=== PATIENT | male | born 1950 | race Caucasian/White ===

== ENCOUNTER → 2024-01-03 07:33 | Outpatient (REF) | payer OTHER, SELFPAY | LOC: RAD 07:33 | PROVIDERS: ATTENDING PHYSICIAN Internal Medicine Critical Care Medicine | DX: Z87.891 Personal history of nicotine dependence (principal) | CPT/HCPCS: 71271 ==

== ENCOUNTER → 2024-02-06 14:00 | Outpatient (REF) | payer OTHER, SELFPAY | LOC: RAD 14:00 | PROVIDERS: ATTENDING PHYSICIAN Surgery; FAMILY PHYSICIAN Emergency Medicine | DX: K56.600 Partial intestinal obstruction, unspecified as to cause (principal) | CPT/HCPCS: 74177; Q9967 ==

== ENCOUNTER → 2024-04-15 11:43 | Outpatient (REF) | payer OTHER, SELFPAY | LOC: RAD 11:43 | PROVIDERS: ATTENDING PHYSICIAN Emergency Medicine | DX: J40 Bronchitis, not specified as acute or chronic (principal) | CPT/HCPCS: 71046 ==

== ENCOUNTER → 2024-04-22 13:35 | Outpatient (REF) | payer OTHER, SELFPAY | LOC: RAD 13:35 | PROVIDERS: ATTENDING PHYSICIAN Urology; FAMILY PHYSICIAN Emergency Medicine | DX: N40.2 Nodular prostate without lower urinary tract symptoms (principal); R89.7 Abnormal histological findings in specimens from other organs, systems and tissues; Z80.42 Family history of malignant neoplasm of prostate | CPT/HCPCS: 76770 ==

== ENCOUNTER 2024-09-04 11:52 | Emergency (ER) | payer OTHER, SELFPAY ==
[2024-09-04 11:58] VITALS: BP 114/64
[2024-09-04 12:03] VITALS: BMI 34.2
[2024-09-04 12:17] LABS: % Basophils 0.6 % (0-2); % Immature Granulocytes 0.3 % (0-0.5); % Lymphocytes 26.6 % (20.5-51.1); % Monocytes 6.5 % (1.7-9.3); Absolute Basophils 0.1 10^3/uL (0-0.2); Absolute Lymphocytes 2.6 10^3/uL (1.2-3.4); Absolute Monocytes 0.6 10^3/uL (0.1-0.6); Absolute Neutrophils 6.5 10^3/uL (1.4-6.5); Hematocrit 44.9 % (39.0-52.0); Hemoglobin 15.1 g/dL (13.0-18.0); Mean Corp Hgb Conc. 33.6 g/dL (33.0-37.0); Mean Corpuscular Hgb 29.9 pg (27.0-31.0); Mean Corpuscular Volume 88.9 fL (80.0-94.0); Mean Platelet Volume 8.7 fL (7.4-10.4); Nucleated Red Blood Cells % 0 % (-); Platelet Count 204 10^3/uL (130-400); Red Blood Cell Count 5.05 10^6/uL (4.70-6.10); White Blood Cell Count 9.9 10^3/uL (4.8-10.8)
[2024-09-04 12:36] LABS: ALT (SGPT) 31 U/L (0-50); AST (SGOT) 26 U/L (17-59); Albumin 3.3 g/dl (3.5-5.0); Alkaline Phosphatase 60 U/L (38-126); Blood Urea Nitrogen 20 mg/dl (9-20); Calcium 7.9 mg/dl (8.4-10.2); Carbon Dioxide 27 mmol/L (22-30); Chloride 106 mmol/L (98-107); Estimated Creatinine Clearance 93 ml/min; Glucose 85 mg/dl (70-99); Sodium 137 mmol/L (135-145); Total Bilirubin 0.7 mg/dl (0.2-1.3); Total Protein 5.5 g/dl (6.3-8.2); eGFR > 60.00
[2024-09-04 12:47] LABS: Troponin I < 0.012 ng/ml
[2024-09-04 13:00] VITALS: BP 148/59
--- NOTE | 2024-09-04 13:04 | ED.GENMED ---
History of Present Illness
General
Chief Complaint: Chest Pain
Source: patient and spouse
Exam Limitations: none
Time Seen by Provider: 09/04/24 12:40
Nursing documentation reviewed up to this point in time: agreed with
History of Present Illness
History of Present Illness:
73-year-old male with a past medical history of hypertension, hypertriglyceridemia, asthma, ex-smoker who presents to the emergency department for evaluation after an episode of chest pain. Patient reports that he had just finished work (he says he
was given a quote on some ines) and got in the car to drive home. He says that on the drive home he started to get pain in his left scapula; initially he thought it could be muscular but pain then started to radiate across towards the chest.
He describes an intense pressure sensation. At its peak he says it was associated with sensation of nausea. He says he had some mild shortness of breath. He denies any vomiting. He denies any diaphoresis. Denies any dizziness or syncope. EMS
was called and brought him to the hospital; he was given 324 mg of aspirin by EMS. He says that by the time EMS arrived his symptoms had essentially resolved; total duration was about 15 to 20 minutes. He is currently asymptomatic. He denies
having had similar symptoms in the past. He does see Dr. Bergeron for routine screening and blood pressure management but does not have any known cardiac history.
Past History
Past History
ED Past Medical History: HTN, Other (diverticulitis ) and Other (kidney stones)
ED Past Surgical History: Bowel resection, Cholecystectomy and Other
Social History
Tobacco: Former smoker
Alcohol: Occasional
Drug: None
Personal:
Living: with family
Employment: Employed
Family History
Family History: Hypertension
Review of Systems
Review of Systems
All Other Systems: ROS reviewed and negative except as documented in HPI and ROS
Constitutional: Denies fever or chills
Respiratory: Reports trouble breathing; Denies cough
Cardiac: Reports chest pain; Denies diaphoresis or syncope
ABD/GI: Reports nausea; Denies abdominal pain, vomiting or diarrhea
: Denies flank pain
Musculoskeletal: Denies edema, neck pain or back pain
Neurological: Denies dizzy or headache
Phy Exam
Physical Exam
Physical Exam:
General: Awake, alert, oriented x3; no acute distress
Head: Normocephalic, atraumatic
Eyes: Conjunctiva normal, sclera anicteric
Throat: Airway intact, handling secretions
Neck: Trachea midline, supple without meningismus
Lungs: Clear to auscultation bilaterally, no wheezing, rales, rhonchi
Heart: Regular rate and rhythm with occasional ectopy, no murmurs, gallops, or rubs; no chest wall tenderness
Abd: Soft, non distended, nontender
Back: No scapular tenderness
Neuro: No gross deficit
Skin: no rash in area of concern
Extremities: No edema in extremities, equal pulses in all extremities
Scores
Heart Failure Risk
Heart Failure Risk Score: Not Applicable
Heart Score for Chest Pain Patients
STEMI patient?: No
History: Moderately Suspicious
ECG: Nonspecific Repolarization
Age: >/= 65 years
Risk Factors: 1 or 2 Risk Factors
Troponin: </= Normal Limit
Heart Score for Chest Pain Patients: 5
Heart Score Risk: 20.3% MACE over next 6 weeks
Withdrawal Assessment of Alcohol
Withdrawal Assessment Completed?: Not applicable
Course
Orders/Labs/Results
Orders:
Orders
09/04/24 11:57
Electrocardiogram (*1) Urgent
Reason for Study: Chest Pain
EKG- Treatment ONCE
09/04/24 12:05
Complete Blood Count/With Diff Urgent
Comprehensive Metabolic Panel Urgent
Troponin I Urgent
09/04/24 12:58
CR Chest - 2 Views Urgent
Comment:
Reason For Exam: chest pain
09/04/24 13:13
D-Dimer Urgent
09/04/24 14:47
Troponin I Urgent
Abnormal Lab Results
09/04/24
12:05
Calcium 7.9 L mg/dl
(8.4-10.2)
Total Protein 5.5 L g/dl
(6.3-8.2)
Albumin 3.3 L g/dl
(3.5-5.0)
09/04/24 12:05
09/04/24 12:05
Vital Signs
Initial and Last Documented VS:
Initial Vital Signs
Temp Pulse Resp BP Pulse Ox
36.9 C 69 13 114/64 97
09/04/24 11:58 09/04/24 11:58 09/04/24 11:58 09/04/24 11:58 09/04/24 11:58
Last Documented Vital Signs
Temp Pulse Resp BP Pulse Ox
36.9 C 49 15 148/59 96
09/04/24 11:58 09/04/24 13:35 09/04/24 13:35 09/04/24 13:00 09/04/24 13:35
MDM/Problems Addressed
Differential Diagnosis Includes:
Angina/ACS, GERD, costochondritis, dysrhythmia; PE, pneumonia, pneumothorax considered less likely clinically; very low clinical suspicion for acute aortic dissection
MDM/Problems Addressed:
73-year-old male presents for evaluation after an episode of chest pain�reports an intense pressure sensation radiating from left scapula across the chest associated with nausea and some shortness of breath. Resolved after about 15 to 20 minutes.
He did receive 324 mg of aspirin from EMS. Vitals and exam as above. EKG shows no STEMI. Labs sent in triage including a CBC and a CMP which were unremarkable. His initial troponin is undetectable. Will need to repeat troponin. Will check
D-dimer and chest x-ray. Reassess after the above.
Repeat troponin undetectable, D-dimer negative. Chest x-ray reviewed by me shows no acute disease. Vitals have been stable. Repeat EKG no changes. Low suspicion for emergent pathology, could have been an episode of angina but somewhat lower
suspicion given it was not exertional. Nevertheless we will refer to cardiology for expedited follow-up with ER chest pain hotline. I think he is stable for discharge at this point in time. He feels comfortable with this plan. Spoke about return
precautions all questions answered.
Chronic conditions affecting care:
Hypertension, hypertriglyceridemia�increase his risk for heart disease
*Radiology
Radiology exam reviewed: preliminary read by ED provider and radiology read reviewed
*Pulse Oximetry
Patient hypoxic: no
*EKG
Interpreted by ED Provider?: Yes
Heart Rate: 54
Rate: bradycardiac
Rhythm: sinus
Bowie: left axis deviation
Interval: normal interval
QRS Pattern: right bundle branch block
Ischemia: non-specific ST changes
*Critical Care Note
Total Time (30-74mins, 75-104mins- exclusive of procedures): Not Applicable
Data Reviewed
Review of Other/Old Records Reveals: Labs and Records
Source: patient and spouse
ED Attending Note
-
Portions of this chart may have been created with voice recognition software.� Occasional wrong word or��sound alike� substitutions may have occurred due to the inherent limitations of voice recognition software.
Discharge Plan
Departure
Patient with high blood pressure during this ER visit?: No
Discharge Problem:
Chest pain
Instructions: Chest Pain DCA Follow Up
Prescriptions:
No Action
aspirin 81 MG tablet,delayed release (DR/EC)
81 mg PO DAILY
losartan [Cozaar] 100 MG tablet
100 mg PO DAILY
lansoprazole [Prevacid] 30 MG capsule,delayed release(DR/EC)
30 mg PO DAILY
latanoprost 1 DROP drops
1 drp OPHTHALMIC HS
cefuroxime axetil 500 MG tablet
500 mg PO BID Qty: 6 0RF
Referrals:
Angelic Terrazas MD [Family Provider] -
David Bergeron DO [Active] - Call in 1-3 days for appt
Activity Restrictions/Additional Instructions:
Thank you for visiting the Emergency Department at [facility].
1. Please schedule a follow up appointment as directed. Call first thing tomorrow morning to make an appointment.
2. If indicated, please take your medications as instructed and indicated on discharge paperwork.
3. If any of your symptoms do not improve, or persist, or become more severe within 6-12 hours, please return to the emergency department for further care.
4. Please return to the emergency department if you develop a headache, neck pain/stiffness, fever greater than 100.4F, chest pain, shortness of breath, persistent nausea, vomiting, slurred speech, difficulty walking, numbness/tingling, weakness,
signs of infection or any other symptoms that are worrisome to you.
Please call [phone] if you have any questions.
Interventions
Interventions:
*Risk Screen - Suicide Last Done: 09/04/24 11:58
*General Assessment Last Done: 09/04/24 11:58
*Neglect/Abuse Screening Last Done: 09/04/24 11:58
ED- Cardiac Assessment Last Done: 09/04/24 12:19
Discharge Date and Time
Print Language: VENEZUELAN
[2024-09-04 13:45] LABS: D-Dimer < 0.27 ug/mlFEU (0.00-0.50)
[2024-09-04 15:34] LABS: Troponin I < 0.012 ng/ml
== END 2024-09-04 16:38 | disposition home or self-care (01) ==
LOC: EMR 11:52
PROVIDERS: Emergency Medicine; EMERGENCY PHYSICIAN Emergency Medicine; FAMILY PHYSICIAN Emergency Medicine
DX: R07.89 Other chest pain (principal); I10 Essential (primary) hypertension; E78.1 Pure hyperglyceridemia; J45.909 Unspecified asthma, uncomplicated; Z82.49 Family history of ischemic heart disease and other diseases of the circulatory system; Z87.442 Personal history of urinary calculi; Z87.891 Personal history of nicotine dependence; Z90.49 Acquired absence of other specified parts of digestive tract
CPT/HCPCS: 99283; 71046; 80053; 84484; 85025; 85379; 93005

== ENCOUNTER → 2024-09-15 11:52 | Outpatient (REF) | payer OTHER, SELFPAY | LOC: HWRCS 11:52 | PROVIDERS: ATTENDING PHYSICIAN Physician Assistant; FAMILY PHYSICIAN Emergency Medicine | DX: R94.31 Abnormal electrocardiogram [ECG] [EKG] (principal); I10 Essential (primary) hypertension; E78.2 Mixed hyperlipidemia; R07.89 Other chest pain | CPT/HCPCS: 78452; 93017; A9500; J2785 ==

== ENCOUNTER → 2024-10-07 14:55 | Outpatient (REF) | payer OTHER, SELFPAY | LOC: HWRCS 14:55 | PROVIDERS: ATTENDING PHYSICIAN Nuclear Medicine Nuclear Cardiology; FAMILY PHYSICIAN Emergency Medicine | DX: I10 Essential (primary) hypertension (principal); R94.31 Abnormal electrocardiogram [ECG] [EKG]; R07.9 Chest pain, unspecified | CPT/HCPCS: 93306 ==

== ENCOUNTER 2024-12-05 14:29 | Day surgery (SDC) | payer OTHER, SELFPAY ==
[2024-12-05] VITALS (19 sets, daily range): BP systolic 96–176; BP diastolic 51–86; BMI 34.2
[2024-12-05] MEDS: DILAUDID 1 MG IV (11:19)
--- NOTE | 2024-12-05 11:29 | ED.GENMED ---
History of Present Illness
General
Chief Complaint: Abdominal Pain
Source: patient
Exam Limitations: none
Time Seen by Provider: 12/05/24 11:02
Nursing documentation reviewed up to this point in time: agreed with
History of Present Illness
History of Present Illness:
74 y/o M with with h/o HTN
here with abdomianl angela x 2 weeks umbilical
he has known recurrent incisional hernia there, he has been operated on severaltimes for, most recent 2012
he has since seen dr. bartlett who was discussing hernia repair optinos
pt started having pain about 2 weeks ago as a dull ache
more recently the past 2 days much worse
noticed redness around the belly button today
no fever/chills
moving bowels last yesterday
had some lack okf appetite today but no vomiting
called surgeon and was told to come in
Past History
Past History
ED Past Medical History: HTN, Other (diverticulitis ) and Other (kidney stones)
ED Past Surgical History: Bowel resection, Cholecystectomy and Other
Social History
Tobacco: Former smoker
Alcohol: Occasional
Drug: None
Personal:
Living: with family
Employment: Employed
Family History
Family History: Hypertension
Review of Systems
Review of Systems
Allergies reviewed?: Yes
All Other Systems: Not applicable
Phy Exam
Physical Exam
Physical Exam:
GENERAL: Alert , in no apparent distress
EYE: pupils equal and reactive
NECK: Supple
ENT: o/p clr, mmm.
CARDIAC: Regular rate and rhythm .
LUNGS: Clear breath sounds bilaterally, no acute respiratory distress, no wheezes/rales/rhonchi
ABDOMEN: Soft,tender palpable lump/hernia in the superior umbilical region with about 4 cm surrounding erythema; tender; no r/g, no cvat, normal bowel sounds
NEUROLOGICAL: Alert and oriented, no focal neuro deficits
SKIN: Warm and dry, skin intact.
MUSCULOSKELETAL: No edema, well perfused. neg rosanna's sign
PSYCH: Normal and appropriate interaction.
Course
Orders/Labs/Results
Orders:
Orders
12/05/24 11:14
HYDROmorphone [Dilaudid] 1 mg IV NOW STA
12/05/24 11:20
Complete Blood Count/With Diff Urgent
Comprehensive Metabolic Panel Urgent
12/05/24 11:25
CT Abd/pel Without Iv Or Oral Urgent
Comment:
Reason For Exam: incarcerated hernia
12/05/24 11:32
Blood Culture Q30M
GWENDOLYN Source: Blood/Venous
Specimen Description:
12/05/24 11:47
CeFAZolin 2 GRAM [Ancef] 2 grams in 10 ml IV NOW
12/05/24 11:55
Admit/Transfer Patient As Directed
Co-Sign Provider:
Level of Care: Post Proc/Surg Recovery
Assign to:: Medical/Surgical
Physician / Group: Clinton/Surgery
Diagnosis: Incarcerated umbilical hernia
Reason for Overnight Stay: Standard of Care
PRN Pain Medication Management As Directed
May give lesser potent ordered pain med per pt: Yes
preference::
Protocol:: Medication orders for pain may be administered in a
manner that supports deferring to patient preference
when the pt is:
- Requesting an ordered lesser potent pain medication.
Least to most potent pain medications are defined
as: acetaminophen < NSAID < tramadol < opioids
(morphine, oxycodone, hydromorphone).
- Requesting a lesser dose of the same medication IF
ORDERED.
- Requesting a less intrusive route of administration
if both routes are prescribed by the provider (PO <
IV).
12/05/24 11:56
Code Status As Directed
Resuscitation Status: Full Code
12/05/24 12:00
Blood Culture Q30M
GWENDOLYN Source: Blood/Venous
Specimen Description:
12/05/24 12:08
HYDROmorphone [Dilaudid] 0.25 mg IV PACU-Q5MPRN PRN
HYDROmorphone [Dilaudid] 0.5 mg IV PACU-Q5MPRN PRN
Notify MD As Directed
Notify physician if: for SDS patients with known or suspected sleep obstructive sleep apnea, monitor in the
PACU.
Notify MD for any apneic/desaturation episodes
O2 Therapy [RESP] Urgent
Titrate/Wean O2 to maintain O2 sat greater than (%): 92
Special Instructions: -Provide supplemental oxygen to achieve O2 sat of 92% or greater.
-After 15 min, may wean O2 and discontinue if patient is able to maintain O2 sat of 92%
or greater during recovery period.
If patient is a discharge home, without oxygen therapy, notify anestheiologist if
unable to maintain O2 SAT of 92% or greater on room air for MD clearance.
12/05/24 12:15
Normosol (Mult Electrolytes) [Normosol-R/Plasmalyte-A] 1,000 ml IV PER PROTOCOL
12/05/24 12:19
EPINEPHrine PF [Adrenalin] 1 mg .ROUTE .STK-MED ONE
12/05/24 12:21
Dexamethasone Sod Phosphate [Decadron] 20 mg .ROUTE .STK-MED ONE
Diphenhydramine [Benadryl] 50 mg .ROUTE .STK-MED ONE
Famotidine [Pepcid] 20 mg .ROUTE .STK-MED ONE
12/05/24 12:22
Ondansetron Injectable [Zofran] 4 mg .ROUTE .STK-MED ONE
12/05/24 12:30
EPINEPHrine PF [Adrenalin] 0.3 mg IM NOW STA
12/05/24 12:31
Diphenhydramine [Benadryl] 50 mg IV NOW STA
12/05/24 12:33
Ondansetron Injectable [Zofran] 4 mg IV NOW STA
12/05/24 12:42
EPINEPHrine PF [Adrenalin] 1 mg .ROUTE .STK-MED ONE
12/05/24 12:47
EPINEPHrine 4 mg/250 mL NSS [Adrenalin] 4 mg in 250 ml .ROUTE .STK-MED
12/05/24 12:49
EPINEPHrine PF [Adrenalin] 0.3 mg IM NOW STA
12/05/24 12:50
0.9% Sodium Chloride 1000 ml [Nss] 1,000 ml IV BOLUS
12/05/24 12:59
0.9% Sodium Chloride 1000 ml [Nss] 1,000 ml IV BOLUS
12/05/24 13:38
Lidocaine HCl/Pf [Xylocaine-Mpf 1% Vial] 50 mg .ROUTE .STK-MED ONE
Propofol [Diprivan] 20 ml .ROUTE .STK-MED
Rocuronium [place] [Rocuronium] 100 mg .ROUTE .STK-MED ONE
12/05/24 13:40
Fentanyl Citrate/Pf [Sublimaze] 100 mcg .ROUTE .STK-MED ONE
Midazolam HCl [Versed] 2 mg .ROUTE .STK-MED ONE
12/05/24 13:41
EPINEPHrine PF [Adrenalin] 1 mg .ROUTE .STK-MED ONE
12/05/24 13:44
Ketamine 5 ml .ROUTE .STK-MED
12/05/24 14:12
Bupivacaine 0.25%Pf/Epinephrin [Sensorcaine-Epi 0.25%-0.0005] 60 ml .ROUTE .STK-MED ONE
12/05/24 14:45
Dexamethasone Sod Phosphate [Decadron] 20 mg .ROUTE .STK-MED ONE
Ondansetron Injectable [Zofran] 4 mg .ROUTE .STK-MED ONE
Phenylephrine HCl/0.9% NaCl [Parveen-Synephrine] 1,000 mcg .ROUTE .STK-MED ONE
Phenylephrine [Parveen-Synephrine] 10 mg .ROUTE .STK-MED ONE
ePHEDrine SULFATE [Emerphed] 50 mg .ROUTE .STK-MED ONE
Abnormal Lab Results
12/05/24
11:20
MCH 31.6 H pg
(27.0-31.0)
RDW 15.0 H %
(11.5-14.5)
Absolute Neuts (auto) 7.8 H 10^3/uL
(1.4-6.5)
Neutrophils % 76.7 H %
(42.2-75.2)
Lymphocytes % 18.5 L %
(20.5-51.1)
12/05/24 11:20
12/05/24 11:20
Vital Signs
Initial and Last Documented VS:
Initial Vital Signs
Temp Pulse Resp BP Pulse Ox
36.8 C 56 15 154/81 97
12/05/24 10:57 12/05/24 10:57 12/05/24 10:57 12/05/24 10:57 12/05/24 10:57
Last Documented Vital Signs
Temp Pulse Resp BP Pulse Ox
36.8 C 68 17 176/74 100
12/05/24 10:57 12/05/24 13:30 12/05/24 13:30 12/05/24 13:30 12/05/24 13:30
MDM/Problems Addressed
Differential Diagnosis Includes:
incarcerated hernia, obstruction
MDM/Problems Addressed:
74 y/o M with known hernia incisiaionl
here with 2 weeks pain and tender lump but worse int he past 2-3 days
now with skin changes, redness, just noticed today, unclear for how long he has had that
no fever/chills
no vomiting but dec appetite
stil moving bowels, most recent was yesterday
on exam afebrile
soft abdomen
tender palpable what feels like incarcerarted hernia with surrounding erythema
soft abdomen otherwise
bowel sounds present
d/w surgeon dr. arias who requested noncontrasted CT imaging and pt will go to OR.
did not recommend taht i reduce this at this time
i was called to the room 1215 for oncerns for allergic reactoin after pt was given ancef
within 10 minutes, flushed, felt itchy in his hands and arms and then startted vomiting
became pale, hypotensive to 70s
never had trouble breathing, facial swelling or throat closing
received IM epi and benadryl
ed attending aware and examined pt
observed and within another 15 minutes, he became hypotensive again to 90s and symptomatic with throat sensation of fullness and nauesa/vomiting again
received 2nd dose epi,
2 L fluids
improved and became flushed in his skin appearance but stable
observed until felt comforotable for pt to go to OR
surgeon aware.
*Critical Care Note
Total Time (30-74mins, 75-104mins- exclusive of procedures): Not Applicable
ED Attending Note
-
Portions of this chart may have been created with voice recognition software.� Occasional wrong word or��sound alike� substitutions may have occurred due to the inherent limitations of voice recognition software.
Discharge Plan
Departure
Patient Disposition: Admit
Date of Disposition: 12/05/24
Time of Disposition: 11:38
Admit to: Med/Surg
Admit to doctor: clinton
Presentation/result/management discussed w/ accepting MD/DO: clinton
Patient with high blood pressure during this ER visit?: No
Condition: Fair
Covid-19: Not Applicable
Discharge Problem:
Incarcerated hernia
Interventions
Interventions:
*Risk Screen - Suicide Last Done: 12/05/24 10:57
*General Assessment Last Done: 12/05/24 10:57
*Neglect/Abuse Screening Last Done: 12/05/24 10:57
*Nursing Disposition Last Done: 12/05/24 14:02
IN-Fqmkwd-Adiycefspt Assessment Last Done: 12/05/24 11:37
Discharge Date and Time
Discharge Date/Time: 12/05/24 14:02
--- NOTE | 2024-12-05 11:32 | HPS.HSE ---
Addendum entered and electronically signed by Raymond Alonzo MD 12/05/24 11:57:
I saw and examined the patient independently.
The Pillowcase Maker's note was reviewed and I agree with the note, assessment and plan except where noted below.
Comment: This is a 74-year-old or morbidly obese male with a history of laparoscopic cholecystectomy, lap sigmoid resection for diverticulitis complicated by incisional hernia status post repair x 2 who presents with an incarcerated incisional
hernia with pain over the past week now with overlying skin changes and tenderness to palpation.
Will get a stat CT abdomen pelvis without IV or oral contrast.
N.p.o., IV fluids, IV antibiotics ordered.
Will plan for a robotic incarcerated incisional hernia repair, possible mesh, possible open, possible bowel resection.
Risks/Benefits/Alternatives, expected postoperative course and possible complications (bleeding, infection, injury to surrounding structures, acute/chronic pain) discussed at length. Patient wishes to proceed with surgery. All questions answered.
Consent obtained.
I spent 60 minutes in total for the care of this patient today including direct patient care and counseling, reviewing labs, imaging, coordination of care, as well as documentation.
Original Note:
Family Physician
-
Family Physician:
Chief Complaint
-
Umbilical redness/pain
History of Present Illness
Mr Steele is a 74 yo male a h/o HTN, lap cecilia, diverticulitis s/p lap sigmoid resection (2009), open LLQ incisional hernia repair with mesh 2010 with lap repair with mesh for recurrence 2012 who has been following as an outpatient with Dr. Hairston
for fat containing bilateral inguinal, ventral and umbilical hernias who presents today with worsening discomfort to the umbilical hernia site over the past few weeks with noted erythema to the overlying skin this morning with associated nausea. He
has been having intermittent diarrhea with last BM today. He denies fevers or chills.
Medical History
Past Medical History
Past Medical History: Reports GERD, HTN and Other (nephrolithiasis, odell with cpap)
Past Surgical History: Reports Bowel Resection (lap sigmoid resection ([facility])), Cholecystectomy (1992), Orthopedic (right radial ulna ORIF, left TKR), Tonsilectomy, Urological (Ureteroscopy for stones) and Other (LLQ open incisional hernia repair
with mesh 2010 ([facility]) with recurrence and lap repair with Proceed 20x15 cm mesh in 2012 ([place]))
Social History
Tobacco: Former Smoker
Alcohol: Occasional
Personal:
Living: With Family
Family History
Family History: Cancer (uterice ca mother)
Allergies / Home Medications
Allergies reflects when Allergies were last updated in [employer].
Home Medications with original date entered in [employer]
Allergy/Medication List:
Patient Allergies
Allergy/AdvReac Type Severity Reaction Status Date / Time
latex Allergy Mild Unknown Verified 12/05/24 10:59
If medication reconciliation has not been performed, why?: Medication List N/A
Review of Systems
-
History Source: Patient and Family
A 12 point ROS was completed and negative except as noted: Yes
Physical Exam
Vital Signs
Vital Signs
Temp Pulse Resp BP Pulse Ox
98.3 F 56 15 154/81 97
12/05/24 10:57 12/05/24 10:57 12/05/24 10:57 12/05/24 10:57 12/05/24 10:57
Physical Exam
General: Well Developed, Well Nourished and Pain
HEENT: Moist mucous membranes
Respiratory: Non Labored Respirations
Cardiac: Regular Rhythm
GI: Soft, Tender (over umbilical hernia site) and Other (Umbilical hernia firm, painful with overlying skin changes. Soft reducible ventral and inguinal hernias); No No Hernias
Skin: Warm, Dry and Other (erythema to umbilicus)
Neuro: Awake, Alert and AO x 3
Psych: Calm
Data Reviewed
-
CT Scan: Image Personally Visualized and interpreted (from 01/2024)
Lab Data: Labs Reviewed by me, Discussed with Physician, Discussed with Patient and Discussed with Family
Old Records: Reviewed
Impression/Plan
-
IMPRESSION:
74 yo male h/o HTN, lap cecilia, diverticulitis s/p lap sigmoid resection (2009), open LLQ incisional hernia repair with mesh 2010 with lap repair with mesh for recurrence 2012 presenting with incarcerated umbilical hernia with worsening pain over the
past few weeks with intermittent diarrhea. Nausea today with overlying skin changes to the hernia site.
PLAN:
-Emergency surgery today for hernia repair
-D/W ED team, will check stat abd/pelvis CT w/o contrast to evaluate bowel/hernia size
-Labs being sent now from ED
-Keep NPO for OR
-Ancef 2gm preop
-SCDS for vte ppx
[2024-12-05 11:43] LABS: % Basophils 0.6 % (0-2); % Immature Granulocytes 0.4 % (0-0.5); % Lymphocytes 18.5 % (20.5-51.1); % Monocytes 3.8 % (1.7-9.3); % Neutrophils 76.7 % (42.2-75.2); Absolute Basophils 0.1 10^3/uL (0-0.2); Absolute Lymphocytes 1.9 10^3/uL (1.2-3.4); Absolute Monocytes 0.4 10^3/uL (0.1-0.6); Absolute Neutrophils 7.8 10^3/uL (1.4-6.5); Hematocrit 44.3 % (39.0-52.0); Hemoglobin 15.3 g/dL (13.0-18.0); Mean Corp Hgb Conc. 34.5 g/dL (33.0-37.0); Mean Corpuscular Hgb 31.6 pg (27.0-31.0); Mean Corpuscular Volume 91.5 fL (80.0-94.0); Mean Platelet Volume 8.5 fL (7.4-10.4); Nucleated Red Blood Cells % 0 % (-); Platelet Count 206 10^3/uL (130-400); Red Blood Cell Count 4.84 10^6/uL (4.70-6.10); White Blood Cell Count 10.1 10^3/uL (4.8-10.8)
[2024-12-05 11:57] LABS: ALT (SGPT) 49 U/L (0-50); AST (SGOT) 29 U/L (17-59); Alkaline Phosphatase 55 U/L (38-126); Blood Urea Nitrogen 17 mg/dl (9-20); Carbon Dioxide 28 mmol/L (22-30); Chloride 105 mmol/L (98-107); Estimated Creatinine Clearance 103 ml/min; Glucose 99 mg/dl (70-99); Potassium 4.2 mmol/L (3.5-5.1); Sodium 140 mmol/L (135-145); Total Bilirubin 0.9 mg/dl (0.2-1.3); Total Protein 6.4 g/dl (6.3-8.2); eGFR > 60.00
--- NOTE | 2024-12-05 11:57 | W.SUR.PREOP ---
Pre-Operative Surgical Note
-
I have examined this patient prior to the performance of the scheduled procedure.
The patient's condition is unchanged from the time of the current History and
Physical and the patient is able to undergo the scheduled procedure.
[2024-12-05] MEDS: ANCEF 10 IV (12:00)
[2024-12-05] MEDS: ADRENALIN 0.3 MG IM ×2 (12:30→12:49)
[2024-12-05] MEDS: BENADRYL 50 MG IV (12:31)
[2024-12-05] MEDS: ZOFRAN 4 MG IV (12:34)
[2024-12-05] MEDS: NSS 1000 IV ×3 (12:50→18:40)
--- NOTE | 2024-12-05 17:12 | W.IMMPOSTOP ---
Surgical Immed Post Op Note
-
Primary Surgeon: Raymond Alonzo MD
Assisting Surgeon: TIO Dumont
Pre-op Diagnosis: Incarcerated incisional hernia
Post-op Diagnosis: Same
Procedure Performed:
1. Lysis of adhesions
2. Robotic incarcerated incisional hernia repair with mesh
Anesthesia Type: General
Specimen / Cultures: None
Estimated Blood Loss: 11 cc
Complications: None
Operative Findings: Veress needle entry. 3 port, right sided dock. Incarcerated omentum reduced. Midline fat brought down. Multiple hernia defects along the midline spanning a total distance of 6 cm long by 2.5 cm wide. After closing the
defects with 0 V-Loc 180 sutures this space was reinforced with a 15 cm long by a 10 cm wide piece of Bard soft uncoated polypropylene mesh.
POST OP PLAN:
Imaging: None
Labs: Routine AM
Diet: Advance to Regular as tolerated
Analgesia: Tylenol 650mg q6 Jose, Betty 5mg q6 PRN, Dilaudid 0.5mg q2h PRN
Neuro/vascular checks: q4h
AC/AP: Hold Therapeutic AC, Ok for DVT PPx
Activity: Ad Lnig
Wound/Incisions/Drains: Routine
Abx: None
Dispo: RNF
[2024-12-05] MEDS: TORADOL 10 MG IV (19:23)
[2024-12-05] MEDS: DILAUDID 0.5 MG IV (23:01)
[2024-12-06 03:20] VITALS: BP 117/77
[2024-12-06] MEDS: NSS 1000 IV (05:29)
[2024-12-06] MEDS: DILAUDID 0.5 MG IV (06:34)
[2024-12-06 07:17] LABS: Hematocrit 39.5 % (39.0-52.0); Hemoglobin 13.1 g/dL (13.0-18.0); Mean Corp Hgb Conc. 33.2 g/dL (33.0-37.0); Mean Corpuscular Hgb 31.4 pg (27.0-31.0); Mean Corpuscular Volume 94.7 fL (80.0-94.0); Mean Platelet Volume 8.7 fL (7.4-10.4); Platelet Count 186 10^3/uL (130-400); Red Blood Cell Count 4.17 10^6/uL (4.70-6.10); Red Cell Dist. Width 14.9 % (11.5-14.5); White Blood Cell Count 16.6 10^3/uL (4.8-10.8)
[2024-12-06 07:20] VITALS: BP 135/61
[2024-12-06 07:47] LABS: Blood Urea Nitrogen 19 mg/dl (9-20); Calcium 8.2 mg/dl (8.4-10.2); Carbon Dioxide 26 mmol/L (22-30); Chloride 107 mmol/L (98-107); Estimated Creatinine Clearance 82 ml/min; Glucose 110 mg/dl (70-99); Potassium 4.7 mmol/L (3.5-5.1); Sodium 139 mmol/L (135-145); eGFR > 60.00
[2024-12-06] MEDS: LEXAPRO 10 MG PO (08:10)
[2024-12-06] MEDS: FOLVITE 1 MG PO (08:10)
[2024-12-06] MEDS: PROTONIX 20 MG PO (08:10)
[2024-12-06] MEDS: COZAAR 100 MG PO (08:10)
[2024-12-06] MEDS: TOPROL XL 50 MG PO (08:26)
--- NOTE | 2024-12-06 10:24 | W.PN.GS2 ---
Today's Communication / Plan
-
Dispo planning
Assessment / Plan
-
74 yo male with a h/o RA who presented with incarcerated incisional hernia near the umbilicus now POD #1 robotic incisional hernia repair with mesh, rosibel
Anaphylaxis in the ED after preop Ancef given. s/p steroid/epi. No rash or residual angioedema
AFVSS
Reactive leukocytosis s/p Decadron use
Tolerating diet
Good pain control
--d/c IVF
--c/w regular diet
--OOB/ambulate
--Multimodal analgesics
--ABD binder with activity
--c/w home meds
--SCDS while in bed for VTE ppx
Tentative d/c later today if pain continues to be well controlled
Subjective Data
-
Date of Service: December 06, 2024
Pt seen and examined at bedside. Denies n/v. OOB to chair. Passing flatus. Denies nausea. Tolerating diet. Minimal pain, better than preop.
Objective Data
-
Intake and Output
12/05/24 12/06/24 12/07/24
06:59 06:59 06:59
Intake Total 29837 / 75108
Output Total 650 / 650
Balance 9540 / 9540
Intake:
Oral fluids 460 / 460
IV fluids (Total) 9730 / 9730
Normosol 100 / 100
Output:
Urine, Christensen 200 / 200
Urine, Voided 450 / 450
Vital Signs
Temp Pulse Resp BP Pulse Ox
97.9 F 58 18 135/61 95
12/06/24 07:20 12/06/24 08:26 12/06/24 07:20 12/06/24 08:26 12/06/24 07:20
Lab Results
12/06/24 06:58
12/06/24 06:58
Calcium 8.2 mg/dl (8.4-10.2) L 12/06/24 06:58
Total Bilirubin 0.9 mg/dl (0.2-1.3) 12/05/24 11:20
AST 29 U/L (17-59) 12/05/24 11:20
ALT 49 U/L (0-50) 12/05/24 11:20
Alkaline Phosphatase 55 U/L (38-126) 12/05/24 11:20
Total Protein 6.4 g/dl (6.3-8.2) 12/05/24 11:20
Albumin 4.0 g/dl (3.5-5.0) 12/05/24 11:20
Physical Exam
-
NAD
ABD soft, obese, incisions with intact glue, ND. Mild receding erythema over umbilicus.
[2024-12-06 11:35] VITALS: BP 163/81
[2024-12-06] MEDS: TYLENOL 650 MG PO (12:43)
--- NOTE | 2024-12-06 13:43 | W.DS.TRANS ---
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
-
Discharge Instructions:
Discharge Diagnosis/Procedures Robotic repair of incarcerated incisional hernia
with mesh
Anaphylactic reaction to cephalosporin
antibiotic
Diet As tolerated,Regular
Activity No strenuous activity
Bathing Restrictions OK to Shower
Instructions:
Stand-Alone Forms:
Changes to Home Medications: No
Discharge Medications:
DC Medications w/original date entered in [facility]
losartan 100 mg tablet (Cozaar) 100 mg PO DAILY 12/15/09
atorvastatin 10 mg tablet 10 mg PO DAILY 12/05/24
betamethasone dipropionate 0.05 % lotion 1 applic topical DAILYPRN PRN skin 12/05/24
clobetasol 0.05 % topical cream 1 applic topical DAILYPRN PRN skin 12/05/24
escitalopram oxalate 10 mg tablet 10 mg PO DAILY 12/05/24
folic acid 1 mg tablet 1 mg PO DAILY 12/05/24
methotrexate sodium 2.5 mg tablet 7.5 mg PO MO@0800,1800 12/05/24
metoprolol succinate 50 mg tablet,extended release 24 hr 50 mg PO DAILY 12/05/24
pantoprazole 20 mg tablet,delayed release 20 mg PO DAILY 12/05/24
acetaminophen 325 mg tablet 650 mg (2 x 325 mg) PO Q4HPRN PRN mild pain #1 tab 12/06/24
oxycodone 5 mg tablet 5 mg PO Q4HPRN PRN breakthrough/severe pain #15 tabs 12/06/24
Home Medication Changes
Pending Results: No
[2024-12-06] MEDS: ROXICODONE 5 MG PO (13:49)
--- NOTE | 2024-12-10 18:30 | OR.RPT ---
Addendum entered and electronically signed by Raymond Alonzo MD 12/10/24 18:42:
Under previous creed unsure procedure description:
The adhesions in the left lower quadrant were lysed off of the abdominal wall and prior IPOM mesh which was clearly visible plastered over this area. Our Bard soft mesh was placed ventral to this mesh in this area.
Original Note:
Operative Report
Operative Report
Patient Name: Quincy Steele
: 1950
Date of Operation: 12/05/2024
Preoperative Diagnosis: Ventral incisional hernia, incarcerated
Postoperative Diagnosis: Same
Procedure(s):
1. Robotic lysis of adhesions
2. Robotic Ventral incisional hernia repair with mesh (CALVIN approach)
Surgeon(s):
Dr. Alonzo
Etcher Enameling(s):
TIO Dumont
Anesthesia: General
Estimated Blood Loss: 11 cc
Urine Output: None
Drains/Lines/Implants:
15 x 10 cm Bard soft uncoated polypropylene mid weight mesh
Specimens:
None
HPI/Surgical Indications:
This is a 74-year-old morbidly obese male with a known periumbilical incisional hernia who presents with abdominal pain and found to have an incarcerated incisional hernia with overlying skin changes. CT scan imaging consistent with incarcerated
omentum. Risks/Benefits/Alternatives were discussed at length, and the patient agreed to proceed with surgery.
Operative Findings: Veress needle entry. 3 port, right sided dock. Incarcerated omentum reduced. Midline fat brought down. Multiple hernia defects along the midline spanning a total distance of 6 cm long by 2.5 cm wide. After closing the
defects with 0 V-Loc 180 sutures this space was reinforced with a 15 cm long by a 10 cm wide piece of Bard soft uncoated polypropylene mesh.
Procedure Description:
The patient was brought to the Operating Room and placed in the supine position with the arms tucked. IV antibiotics were infused and Venodyne stockings placed. Following uneventful induction of general endotracheal anesthesia, an orogastric tube
was placed. The abdomen was prepped and draped in the usual sterile fashion. The abdomen was entered using a Verress technique which required 1 pass, pneumoperitoneum to 15 mmHg was obtained without difficulty. An 8mm trochar was passed through
the abdominal wall roughly 20 cm laterally from the defect in the right upper quadrant, we then confirmed that no inadvertent injury was made while passing the trocar or Veress needle. We then placed 2 additional 8 mm trocars and the robot was
docked. A pro grasper was introduced through the left hand, and a vessel sealer through the right. We turned our attention to the midline hernia which contained incarcerated omentum using the vessel sealer and ProGrasp or the omentum was gently
reduced and divided when necessary. There was a portion of the omentum that could not immediately be reduced and was therefore divided. There was also some adhesions from his prior surgery in the left lower quadrant up to the anterior abdominal
wall that were carefully lysed with scissors and blunt dissection. This took over 60 minutes to take down. There was no injury to the underlying bowel/viscera. We then began creating pocket in the preperitoneal plane. The main hernia defect was
identified and the contents of the hernia were reduced in a piecemeal fashion. We then extended our dissection cephalad and caudad. There were multiple defects noted along the midline all of which were reduced. The final defect size was 6 cm long
by 2.5 cm wide, and our pocket was 15 cm long by 10 cm wide. The defects in our flap were closed with 0 Vicryl sutures. They hernia defects were closed with 0 V-Loc 180 sutures. A piece of Bard soft uncoated polypropylene mid weight mesh was then
introduced and secured to the posterior rectus sheath in 4 quadrants with 2-0 Vicryl suture. We then closed our flap with a running 2-0 Monocryl barbed suture. There were a few more small rents that were closed with 2-0 Vicryl suture
[id number]. After confirming complete exclusion of the mesh from the intra-abdominal cavity the ports were removed under direct visualization and pneumoperitoneum was evacuated. All port sites were closed with glue. Counts were correct and
overall, the patient tolerated the procedure well and was taken to the Recovery Room postoperatively in stable condition.
I was the attending physician and performed the procedure with assistance from the DIRECTOR OF CONTENT AND PROGRAMMING above. I was present for all portions of the case, excluding skin closure.
Raymond Alonzo MD
== END 2024-12-06 14:52 | disposition home or self-care (01) ==
LOC: PACU 14:29
PROVIDERS: Physician Assistant; Registered Nurse; ATTENDING PHYSICIAN Surgery; EMERGENCY PHYSICIAN Emergency Medicine; FAMILY PHYSICIAN Emergency Medicine
DX: K43.0 Incisional hernia with obstruction, without gangrene (principal)
CPT/HCPCS: 49594; 74176; 80048; 80053; 85025; 85027; 87040; 96374; 99285; C1781

== ENCOUNTER → 2025-01-09 09:52 | Outpatient (REF) | payer OTHER, SELFPAY | LOC: HWRAD 09:52 | PROVIDERS: ATTENDING PHYSICIAN Internal Medicine Critical Care Medicine; FAMILY PHYSICIAN Emergency Medicine | DX: Z87.891 Personal history of nicotine dependence (principal) | CPT/HCPCS: 71271 ==

== ENCOUNTER → 2025-05-20 12:53 | Outpatient (REF) | payer OTHER, SELFPAY | LOC: HWRAD 12:53 | PROVIDERS: ATTENDING PHYSICIAN Student in an Organized Health Care Education/Training Program | DX: M79.631 Pain in right forearm (principal) | CPT/HCPCS: 73090; 73110 ==